=== PATIENT | female | born 1965 | race Caucasian/White ===

== ENCOUNTER 2017-12-04 11:04 | Inpatient (IN) | payer MEDICARE, MEDICAID ==
[~2017-12-04] VITALS: Ht 165.1 cm; Wt 97.9 kg
[~2017-12-04 11:04] MED LIST: ADV250 IH; ALBU8HFA IH; ATOR20TA86 PO; DDAV1 PO; GABA600T PO; INSLAN SQ; LAMO25 PO; METF850T2 PO; MONT10TA21 PO; NICO14T TD; NICO7T TD; QUET25TA PO; TEMA30 PO; TIOT185 IH; TOPI25CA PO
[2017-12-04] MEDS ORDERED: MELOXICAM 7.5 MG TABLET PO PRN (12:45)
[2017-12-04 13:29] VITALS: BP 120/67
[2017-12-04 14:00] VITALS: BP 107/63
[2017-12-04] MEDS: HydrOXYzine PAMOATE 25 MG CAPSULE PO SCH ×3 (14:54→20:09)
[2017-12-04] MEDS ORDERED: DEXTROSE 50%-WATER 25 GM/50 ML SYRINGE IVP PRN (15:15)
[2017-12-04] MEDS ORDERED: INSULIN ASPART 100 UNITS/ML SQ PRN (15:15)
[2017-12-04] MEDS: TOPIRAMATE 25 MG TABLET PO SCH (16:49)
[2017-12-04 17:00] VITALS: BP 118/74
[2017-12-04] MEDS ORDERED: LUBIPROSTONE 24 MCG CAPSULE PO SCH (17:00)
[2017-12-04] MEDS: MetFORMIN HCL 850 MG TABLET PO SCH (17:40)
[2017-12-04] MEDS: TraZODone HCL 150 MG TABLET PO SCH (20:09)
[2017-12-04] MEDS: ROPINIRole HCL 1 MG TABLET PO SCH (20:09)
[2017-12-04] MEDS: ESZOPICLONE 3 MG TABLET PO SCH (20:12)
[2017-12-04] MEDS ORDERED: INSULIN GLARGINE,HUM.REC.ANLOG 100 UNITS/ML SQ SCH (21:00)
[2017-12-04] MEDS: INSULIN GLARGINE,HUM.REC.ANLOG 100 UNITS/ML SQ SCH (21:00)
[2017-12-05 06:02] LABS: GLUCOMETER DEV NAME(LOC) 3EI B; GLUCOSE,POINT OF CARE 112 MG/DL (70-110)
[2017-12-05] MEDS: MetFORMIN HCL 850 MG TABLET PO SCH (07:08)
[2017-12-05] MEDS: LUBIPROSTONE 24 MCG CAPSULE PO SCH ×2 (07:09→16:51)
[2017-12-05 08:00] VITALS: BP 127/55
[2017-12-05] MEDS: LamoTRIgine 100 MG TABLET PO SCH (09:02)
[2017-12-05] MEDS: TOPIRAMATE 25 MG TABLET PO SCH ×2 (09:03→16:51)
[2017-12-05] MEDS: ROPINIRole HCL 1 MG TABLET PO SCH ×2 (09:03→19:47)
[2017-12-05] MEDS: HydrOXYzine PAMOATE 25 MG CAPSULE PO SCH ×4 (09:03→19:48)
[2017-12-05] MEDS: ZONISAMIDE 100 MG CAPSULE PO SCH (09:03)
[2017-12-05] MEDS: ATORVASTATIN CALCIUM 20 MG TABLET PO SCH (09:04)
[2017-12-05 09:14] LABS: BASOPHILS % (AUTO) 0.9 % (0.0-2.0); EOSINOPHILS % (AUTO) 2.2 % (1.0-6.0); HEMATOCRIT 38.8 % (36-46); HEMOGLOBIN 12.8 g/dL (12.0-16.0); LYMPHOCYTES # (AUTO) 2.1 K/uL (1.0-4.8); LYMPHOCYTES % (AUTO) 27.3 % (22.0-44.0); MEAN CORPUSCULAR HEMOGLOBIN 27.5 pg (26.0-34.0); MEAN CORPUSCULAR HGB CONC 32.9 G/dL (31.0-37.0); MEAN CORPUSCULAR VOLUME 84 fL (80-100); MONOCYTES # (AUTO) 0.5 K/uL (0.1-1.0); MONOCYTES % (AUTO) 6.1 % (2.0-9.0); NEUTROPHILS % (AUTO) 63.5 % (40.0-70.0); PLATELET COUNT (AUTO) 293 K/uL (150-450); RED BLOOD CELL COUNT(AUTO) 4.64 MIL/uL (4.00-5.20); RED CELL DISTRIBUTION WIDTH 13.9 % (11.5-14.5)
[2017-12-05 09:31] LABS: ALBUMIN 3.6 g/dL (3.4-5.0); BILIRUBIN,TOTAL 0.2 mg/dL (0.1-1.0); CALCIUM, TOTAL 8.9 mg/dL (8.8-10.5); CREATININE 1.34 mg/dL (0.60-1.30); POTASSIUM 4.5 mmol/L (3.5-5.1); THYROID STIMULATING HORMONE 3.96 uIU/mL (0.36-3.74)
[2017-12-05 09:36] LABS: HEMOGLOBIN A1C 6.1 % (4.5-6.2)
[2017-12-05 11:27] LABS: GLUCOMETER DEV NAME(LOC) 3EI B; GLUCOSE,POINT OF CARE 89 MG/DL (70-110)
[2017-12-05] MEDS: MetFORMIN HCL 500 MG TABLET PO SCH (16:53)
[2017-12-05 18:00] VITALS: BP 124/62
[2017-12-05] MEDS: TraZODone HCL 150 MG TABLET PO SCH (19:47)
[2017-12-05] MEDS: INSULIN GLARGINE,HUM.REC.ANLOG 100 UNITS/ML SQ SCH (19:53)
[2017-12-05] MEDS: ESZOPICLONE 3 MG TABLET PO SCH (20:52)
[2017-12-05] MEDS ORDERED: ESZOPICLONE 2 MG TABLET PO SCH (21:00)
[2017-12-06 04:30] VITALS: BP 124/60
[2017-12-06 05:38] LABS: GLUCOMETER DEV NAME(LOC) 3EI B; GLUCOSE,POINT OF CARE 107 MG/DL (70-110)
[2017-12-06] MEDS: LUBIPROSTONE 24 MCG CAPSULE PO SCH ×2 (07:03→07:09)
[2017-12-06] MEDS: MetFORMIN HCL 500 MG TABLET PO SCH (07:04)
[2017-12-06] MEDS: TOPIRAMATE 25 MG TABLET PO SCH (09:28)
[2017-12-06] MEDS: ATORVASTATIN CALCIUM 20 MG TABLET PO SCH (09:28)
[2017-12-06] MEDS: ZONISAMIDE 100 MG CAPSULE PO SCH (09:28)
[2017-12-06] MEDS: ROPINIRole HCL 1 MG TABLET PO SCH (09:28)
[2017-12-06] MEDS: HydrOXYzine PAMOATE 25 MG CAPSULE PO SCH ×2 (09:28→12:22)
[2017-12-06] MEDS: LamoTRIgine 100 MG TABLET PO SCH (09:28)
[2017-12-06] MEDS ORDERED: LUBI24CA2 PO (12:27)
[2017-12-06] MEDS ORDERED: HYDR-4031 PO (12:27)
[2017-12-06] MEDS ORDERED: ESZO3 PO (12:27)
[2017-12-06] MEDS ORDERED: ZONI100 PO (12:27)
[2017-12-06] MEDS ORDERED: ROPI1TAB11 PO (12:27)
[2017-12-06] MEDS ORDERED: TRAZ150 PO (12:27)
[2017-12-06 13:54] VITALS: BP 139/74
[2017-12-06 15:09] LABS: GLUCOMETER DEV NAME(LOC) 3EX 1; GLUCOSE,POINT OF CARE 106 MG/DL (70-110)
[2017-12-06 15:09] LABS: GLUCOMETER DEV NAME(LOC) 3EX 1; GLUCOSE,POINT OF CARE 92 MG/DL (70-110)
[2017-12-06 15:09] LABS: GLUCOMETER DEV NAME(LOC) 3EX 1; GLUCOSE,POINT OF CARE 97 MG/DL (70-110)
[2017-12-06 15:09] LABS: GLUCOMETER DEV NAME(LOC) 3EX 1; GLUCOSE,POINT OF CARE 111 MG/DL (70-110)
[2017-12-06 15:09] LABS: GLUCOMETER DEV NAME(LOC) 3EX 1; GLUCOSE,POINT OF CARE 115 MG/DL (70-110)
[2017-12-06] MEDS ORDERED: INSULIN GLARGINE,HUM.REC.ANLOG 100 UNITS/ML SQ SCH (21:00)
== END 2017-12-06 13:45 | disposition home or self-care (01) | DRG 885 ==
LOC: 3EX 13:27
PROVIDERS: ADMIT Psychiatry & Neurology Psychiatry; ATTEND Psychiatry & Neurology Psychiatry
DX: F31.9 Bipolar disorder, unspecified (principal); N18.9 Chronic kidney disease, unspecified; E11.22 Type 2 diabetes mellitus with diabetic chronic kidney disease; R45.851 Suicidal ideations; E78.5 Hyperlipidemia, unspecified; G25.81 Restless legs syndrome; G56.00 Carpal tunnel syndrome, unspecified upper limb; J44.9 Chronic obstructive pulmonary disease, unspecified; Z82.49 Family history of ischemic heart disease and other diseases of the circulatory system; Z90.710 Acquired absence of both cervix and uterus; Z90.721 Acquired absence of ovaries, unilateral; Z88.5 Allergy status to narcotic agent; Z88.0 Allergy status to penicillin; Z91.040 Latex allergy status; Z80.9 Family history of malignant neoplasm, unspecified
CPT/HCPCS: 82962; 83036; 84436; 84443; J1815

== ENCOUNTER 2019-05-11 10:21 | Emergency (ER) | payer MEDICARE, OTHER ==
[~2019-05-11] VITALS: Ht 162.6 cm; Wt 90.9 kg
[~2019-05-11 10:21] MED LIST changes: -ADV250 IH; -ALBU8HFA IH; -DDAV1 PO; +ESZO3 PO; -GABA600T PO; +HYDR-4031 PO; +LUBI24CA2 PO; +METF-961 PO; -METF850T2 PO; -MONT10TA21 PO; -NICO14T TD; -NICO7T TD; -QUET25TA PO; +ROPI1TAB11 PO; -TEMA30 PO; -TIOT185 IH; +TRAZ150 PO; +ZONI100 PO
[2019-05-11 10:39] LABS: GLUCOSE,POINT OF CARE 162 MG/DL (70-110)
[2019-05-11] MEDS ORDERED: ACETAMINOPHEN 500 MG TABLET PO ONE (11:15)
[2019-05-11 12:00] VITALS: BP 123/78
== END 2019-05-11 12:10 | disposition home or self-care (01) ==
LOC: EMS 10:21 → 4E 10:48 → UNDOADMIN 10:48 → EMS 12:10
DX: S63.616A Unspecified sprain of right little finger, initial encounter (principal); S80.211A Abrasion, right knee, initial encounter; J45.909 Unspecified asthma, uncomplicated; F31.9 Bipolar disorder, unspecified; E11.9 Type 2 diabetes mellitus without complications; E78.00 Pure hypercholesterolemia, unspecified; F17.210 Nicotine dependence, cigarettes, uncomplicated; Z90.710 Acquired absence of both cervix and uterus; Z98.51 Tubal ligation status; Z88.6 Allergy status to analgesic agent; Z88.0 Allergy status to penicillin; Z91.040 Latex allergy status; Z88.5 Allergy status to narcotic agent; Z79.899 Other long term (current) drug therapy; Z79.4 Long term (current) use of insulin; Z79.84 Long term (current) use of oral hypoglycemic drugs; W19.XXXA Unspecified fall, initial encounter; Y93.89 Activity, other specified; Y92.89 Other specified places as the place of occurrence of the external cause; Y99.8 Other external cause status
CPT/HCPCS: 99406

== ENCOUNTER 2021-03-13 10:25 | Emergency (ER) | payer MEDICARE, OTHER ==
[~2021-03-13] VITALS: Ht 165.1 cm; Wt 93.2 kg
[~2021-03-13 10:25] MED LIST changes: -LAMO25 PO; +LAMO25TA25 PO; -ROPI1TAB11 PO; +ROPI1TAB13 PO; -ZONI100 PO; +ZONI100C30 PO
[2021-03-13 10:46] LABS: GLUCOSE,POINT OF CARE 151 MG/DL (70-110)
[2021-03-13 11:17] LABS: BASOPHILS % (AUTO) 1.1 % (0.0-2.0); EOSINOPHILS % (AUTO) 1.1 % (1.0-6.0); HEMOGLOBIN 13.4 g/dL (12.0-16.0); LYMPHOCYTES # (AUTO) 2.3 K/uL (1.0-4.8); LYMPHOCYTES % (AUTO) 22.5 % (22.0-44.0); MEAN CORPUSCULAR HEMOGLOBIN 27.1 pg (26.0-34.0); MEAN CORPUSCULAR HGB CONC 32.6 G/dL (31.0-37.0); MEAN CORPUSCULAR VOLUME 83 fL (80-100); MONOCYTES # (AUTO) 0.7 K/uL (0.1-1.0); NEUTROPHILS # (AUTO) 7.1 K/uL (1.8-7.7); NEUTROPHILS % (AUTO) 68.3 % (40.0-70.0); PLATELET COUNT (AUTO) 293 K/uL (150-450); RED BLOOD CELL COUNT(AUTO) 4.92 MIL/uL (4.00-5.20); RED CELL DISTRIBUTION WIDTH 15.4 % (11.5-14.5)
[2021-03-13 11:27] LABS: CREATININE 1.06 mg/dL (0.60-1.30); POTASSIUM 3.7 mmol/L (3.5-5.1)
[2021-03-13 11:28] LABS: CALCIUM, TOTAL 9.1 mg/dL (8.8-10.5)
[2021-03-13 11:33] LABS: ALBUMIN 3.6 g/dL (3.4-5.0); BILIRUBIN,TOTAL 0.2 mg/dL (0.1-1.0); TOTAL PROTEIN, SERUM 6.2 g/dL (6.4-8.2)
[2021-03-13 12:15] VITALS: BP 129/77
[2021-03-13] MEDS ORDERED: KETOROLAC TROMETHAMINE 30 MG/ML VIAL IM ONE (12:15)
== END 2021-03-13 12:31 | disposition home or self-care (01) ==
LOC: EMS 10:34
DX: R07.89 Other chest pain (principal); R11.0 Nausea; J45.909 Unspecified asthma, uncomplicated; F31.9 Bipolar disorder, unspecified; E11.9 Type 2 diabetes mellitus without complications; E78.00 Pure hypercholesterolemia, unspecified; F17.210 Nicotine dependence, cigarettes, uncomplicated; Z88.0 Allergy status to penicillin; Z88.5 Allergy status to narcotic agent; Z91.040 Latex allergy status; Z79.4 Long term (current) use of insulin; Z90.710 Acquired absence of both cervix and uterus
CPT/HCPCS: 36415; 71101; 80053; 82962; 84484; 85025; 93005; 96372; 99285; J1885

== ENCOUNTER → 2021-10-30 | Outpatient (CLI) | payer MEDICARE, OTHER ==
[~2021-10-30] MED LIST changes: +METF-1185 PO; -METF-961 PO; -TRAZ150 PO; +TRAZ150T80 PO; -ZONI100C30 PO; +ZONI100C87 PO
[2021-10-30 15:31] LABS: ALBUMIN 3.9 g/dL (3.4-5.0); BILIRUBIN,TOTAL 0.2 mg/dL (0.1-1.0); CALCIUM, TOTAL 9.2 mg/dL (8.8-10.5); CHOL/HDL RATIO 2.4 (3.9-5.7); CREATININE 1.14 mg/dL (0.60-1.30); POTASSIUM 5.3 mmol/L (3.5-5.1); TOTAL PROTEIN, SERUM 7.1 g/dL (6.4-8.2)
== END | disposition home or self-care (01) ==
LOC: LABMN 11:19
PROVIDERS: ATTEND Psychiatry & Neurology Psychiatry
DX: F31.32 Bipolar disorder, current episode depressed, moderate (principal); E11.9 Type 2 diabetes mellitus without complications
CPT/HCPCS: 80053; 80061; 83036

== ENCOUNTER 2024-09-14 13:39 | Emergency (ER) | payer OTHER ==
[~2024-09-14] VITALS: Ht 160 cm; Wt 72.7 kg
[~2024-09-14 13:39] MED LIST changes: +ATOR20TA PO; -ATOR20TA86 PO; -ESZO3 PO; +ESZO3TAB53 PO; -HYDR-4031 PO; +HYDR-4808 PO; -LAMO25TA25 PO; +LAMO25TA36 PO; +ROPI1 PO; -ROPI1TAB13 PO
[2024-09-14] MEDS ORDERED: TOPI100T37 PO (13:48)
[2024-09-14] MEDS ORDERED: OLAN10TA74 PO (13:48)
[2024-09-14] MEDS ORDERED: ROPI1TAB46 PO (13:48)
[2024-09-14] MEDS ORDERED: DULO-114 PO (13:48)
[2024-09-14] MEDS ORDERED: LURA80TA4 PO (13:48)
[2024-09-14] MEDS ORDERED: GABA-534 PO (13:48)
[2024-09-14] MEDS ORDERED: OLAN15TA98 PO (13:48)
[2024-09-14] MEDS ORDERED: GABA-1404 PO (13:48)
[2024-09-14] MEDS ORDERED: HYDR50CA6 PO (13:48)
[2024-09-14] MEDS ORDERED: CLOP75TA32 PO (13:48)
[2024-09-14] MEDS ORDERED: TRAZ-257 PO (13:48)
[2024-09-14] MEDS ORDERED: LEVE10006 PO (13:48)
[2024-09-14] MEDS ORDERED: ROPI5TAB24 PO (13:48)
[2024-09-14] MEDS ORDERED: DULO-113 PO (13:48)
[2024-09-14] MEDS ORDERED: LAMO200T10 PO (13:48)
[2024-09-14] MEDS: ACETAMINOPHEN 500 MG TABLET PO ONE (16:04)
[2024-09-14 16:38] LABS: CALCIUM, TOTAL 8.6 mg/dL (8.8-10.5); CREATININE 1.16 mg/dL (0.60-1.30); POTASSIUM 3.6 mmol/L (3.5-5.1)
[2024-09-14 16:45] LABS: TROPONIN I-HIGH SENSITIVITY 4 ng/L (<51)
[2024-09-14 17:20] LABS: BASOPHILS % (AUTO) 1.3 % (0.0-2.0); EOSINOPHILS % (AUTO) 3.8 % (1.0-6.0); HEMATOCRIT 38.9 % (36-46); HEMOGLOBIN 12.8 g/dL (12.0-16.0); LYMPHOCYTES # (AUTO) 2.6 K/uL (1.0-4.8); LYMPHOCYTES % (AUTO) 33.1 % (22.0-44.0); MEAN CORPUSCULAR HEMOGLOBIN 28.9 pg (26.0-34.0); MEAN CORPUSCULAR HGB CONC 32.8 G/dL (31.0-37.0); MEAN CORPUSCULAR VOLUME 88 fL (80-100); MONOCYTES # (AUTO) 0.5 K/uL (0.1-1.0); MONOCYTES % (AUTO) 6.9 % (2.0-9.0); NEUTROPHILS # (AUTO) 4.3 K/uL (1.8-7.7); NEUTROPHILS % (AUTO) 54.9 % (40.0-70.0); PLATELET COUNT (AUTO) 294 K/uL (150-450); RED BLOOD CELL COUNT(AUTO) 4.42 MIL/uL (4.00-5.20); RED CELL DISTRIBUTION WIDTH 13.1 % (11.5-14.5); WHITE BLOOD COUNT (AUTO) 7.8 K/uL (4.5-11.0)
[2024-09-14 17:54] VITALS: BP 115/84; PULSE 72; RESP 18; TEMP 98.4; O2SAT 98
== END 2024-09-14 17:57 | disposition home or self-care (01) ==
LOC: EMS 13:39
DX: S00.03XA Contusion of scalp, initial encounter (principal); R51.9 Headache, unspecified; F25.9 Schizoaffective disorder, unspecified; E11.9 Type 2 diabetes mellitus without complications; E78.00 Pure hypercholesterolemia, unspecified; F12.90 Cannabis use, unspecified, uncomplicated; F17.210 Nicotine dependence, cigarettes, uncomplicated; Z88.0 Allergy status to penicillin; Z88.5 Allergy status to narcotic agent; Z91.040 Latex allergy status; Z79.02 Long term (current) use of antithrombotics/antiplatelets; Z79.899 Other long term (current) drug therapy; W05.1XXA Fall from non-moving nonmotorized scooter, initial encounter; Y93.89 Activity, other specified; Y92.89 Other specified places as the place of occurrence of the external cause; Y99.8 Other external cause status
CPT/HCPCS: 70450; 80048; 84484; 85025; 99284

== ENCOUNTER 2025-08-30 19:11 | Inpatient (IN) | payer OTHER, MEDICAID ==
[~2025-08-30] VITALS: Ht 165.1 cm; Wt 92.9 kg
[~2025-08-30 19:11] MED LIST changes: +CLOP75TA32 PO; +DULO60CA73 PO; -HYDR-4808 PO; +HYDR50CA6 PO; +LAMO200T10 PO; -LAMO25TA36 PO; +LEVE100023 PO; -LUBI24CA2 PO; +LURA80TA4 PO; +OLAN15TA98 PO; -ROPI1 PO; +ROPI5TAB24 PO; +TOPI-258 PO; -TOPI25CA PO
[2025-08-30] MEDS ORDERED: GABA-534 PO (19:44)
[2025-08-30] MEDS ORDERED: FLUT1BLS3 IH (19:44)
[2025-08-30] MEDS ORDERED: NICO-803 TP (19:44)
[2025-08-30] MEDS ORDERED: HYDR-4061 PO (19:44)
[2025-08-30] MEDS ORDERED: NALO4SPR22 NASAL (19:44)
[2025-08-30] MEDS ORDERED: LAMO25TA36 PO (19:44)
[2025-08-30 19:45] LABS: COVID AG,FIA SOURCE NASAL SWAB
[2025-08-30 19:49] LABS: CALCIUM, TOTAL 8.5 mg/dL (8.8-10.5); CREATININE 1.34 mg/dL (0.60-1.30); GLOMERULAR FILTR. RATE CALC 40.0 mL/min (>60); GLUCOSE,RANDOM 155.0 mg/dL (70-110); SODIUM SERUM 142.0 mmol/L (136-145); UREA NITROGEN, BLOOD 10.0 mg/dL (7-18)
[2025-08-30 19:51] LABS: PLATELET COUNT (AUTO) 304 K/uL (150-450); RED BLOOD CELL COUNT(AUTO) 4.70 MIL/uL (4.00-5.20); RED CELL DISTRIBUTION WIDTH 13.7 % (11.5-14.5); WHITE BLOOD COUNT (AUTO) 8.4 K/uL (4.5-11.0)
[2025-08-30] MEDS: POTASSIUM CHLORIDE 20 MEQ ER TABLET PO ONE (20:23)
[2025-08-30 20:40] LABS: SARS-COV2 (COVID) ANTIGEN,FIA Negative (Negative)
[2025-08-30] MEDS ORDERED: PROMETHAZINE HCL 25 MG TABLET PO PRN (22:00)
[2025-08-30] MEDS ORDERED: ACETAMINOPHEN 325 MG TABLET PO PRN (22:00)
[2025-08-30] MEDS ORDERED: GuaiFENesin/D-METHORPHAN [SUGAR-FREE] 200-20MG/10 ML SYRUP UDCUP PO PRN (22:00)
[2025-08-30] MEDS ORDERED: ZOLPIDEM TARTRATE 10 MG TABLET PO PRN (22:00)
[2025-08-30] MEDS ORDERED: OLANZapine 5 MG RAPDIS TABLET PO PRN (22:00)
[2025-08-30] MEDS ORDERED: MAG HYDROX/ALUMINUM HYD/SIMETH ES 30 ML SUSPENSION UDCUP PO PRN (22:00)
[2025-08-30] MEDS ORDERED: TUBERCULIN, PURIFIED PROTEIN DERIVATIVE 5 TU/0.1 ML SYRINGE ID ONE (22:00)
[2025-08-30] MEDS ORDERED: LOPERAMIDE HCL 2 MG CAPSULE PO PRN (22:00)
[2025-08-30] MEDS ORDERED: MAGNESIUM HYDROXIDE SUSPENSION 30 ML UDCUP PO PRN (22:00)
[2025-08-30] MEDS ORDERED: MELATONIN 5 MG TABLET PO PRN (22:00)
[2025-08-31 00:15] LABS: APPEARANCE,URINE CLEAR (CLEAR); GLUCOSE, URINE (UA) NEGATIVE (NEGATIVE); LEUKOCYTE ESTERASE ,URINE NEGATIVE (NEGATIVE); NITRATE,URINE NEGATIVE (NEGATIVE); OCCULT BLOOD,URINE NEGATIVE (NEGATIVE); PH,URINE DRUG SCREEN 6.0 (5.0-8.0); SPECIFIC GRAVITIY, URINE 1.018 (1.003-1.030)
[2025-08-31 00:21] LABS: AMPHET/METH SCREEN,URINE NEGATIVE (NEGATIVE); BARBITURATE SCREEN, URINE NEGATIVE (NEGATIVE); CANNABINOID SCREEN,URINE POSITIVE (NEGATIVE); COCAINE SCREEN,URINE NEGATIVE (NEGATIVE); METHADONE SCREEN, URINE NEGATIVE (NEGATIVE)
[2025-08-31 00:47] LABS: ALCOHOL, URINE DRUG SCREEN NEGATIVE (NEGATIVE)
[2025-08-31] MEDS: TraZODone HCL 150 MG TABLET PO ONE (00:49)
[2025-08-31] MEDS: ESZOPICLONE 3 MG TABLET PO ONE (00:50)
[2025-08-31 05:38] LABS: PLATELET COUNT (AUTO) 281 K/uL (150-450); RED BLOOD CELL COUNT(AUTO) 4.69 MIL/uL (4.00-5.20); RED CELL DISTRIBUTION WIDTH 13.7 % (11.5-14.5); WHITE BLOOD COUNT (AUTO) 7.3 K/uL (4.5-11.0)
[2025-08-31 05:53] LABS: ASPARTATE AMINOTRANSFERASE 10.0 U/L (15-37); CALCIUM, TOTAL 8.3 mg/dL (8.8-10.5); CHOL/HDL RATIO 3.0 (3.9-5.7); CREATININE 1.27 mg/dL (0.60-1.30); GLOMERULAR FILTR. RATE CALC 43.0 mL/min (>60); GLUCOSE,RANDOM 159.0 mg/dL (70-110); LDL CHOL (CALC.) 63.0 mg/dL (0-130); SODIUM SERUM 143.0 mmol/L (136-145); TOTAL PROTEIN, SERUM 5.9 g/dL (6.4-8.2); UREA NITROGEN, BLOOD 13.0 mg/dL (7-18)
[2025-08-31] MEDS: POTASSIUM CHLORIDE 20 MEQ ER TABLET PO ONE (05:59)
[2025-08-31] MEDS: THIAMINE 100 MG TABLET PO SCH (09:07)
[2025-08-31] MEDS: MULTIVITAMINS WITH MINERALS, THERAPEUTIC TABLET PO SCH (09:08)
[2025-08-31] MEDS: GABAPENTIN 400 MG CAPSULE PO SCH ×3 (09:09→20:32)
[2025-08-31] MEDS: FOLIC ACID 1 MG TABLET PO SCH (09:09)
[2025-08-31] MEDS: NALTREXONE HCL 50 MG TABLET PO SCH (09:10)
[2025-08-31] MEDS: TOPIRAMATE 100 MG TABLET PO SCH (09:12)
[2025-08-31] MEDS: DULoxetine HCL 60 MG CAPSULE PO SCH (09:12)
[2025-08-31] MEDS ORDERED: GABAPENTIN 300 MG CAPSULE PO PRN (11:15)
[2025-08-31 13:30] VITALS: BP 124/51; PULSE 65; RESP 18; TEMP 97.8; O2SAT 96
[2025-08-31] MEDS ORDERED: ACETAMINOPHEN 325 MG TABLET PO PRN (14:00)
[2025-08-31] MEDS ORDERED: LOPERAMIDE HCL 2 MG CAPSULE PO PRN (14:00)
[2025-08-31] MEDS ORDERED: MAGNESIUM HYDROXIDE SUSPENSION 30 ML UDCUP PO PRN (14:00)
[2025-08-31] MEDS ORDERED: PROMETHAZINE HCL 25 MG TABLET PO PRN (14:00)
[2025-08-31] MEDS ORDERED: GuaiFENesin/D-METHORPHAN [SUGAR-FREE] 200-20MG/10 ML SYRUP UDCUP PO PRN (14:00)
[2025-08-31] MEDS ORDERED: MAG HYDROX/ALUMINUM HYD/SIMETH ES 30 ML SUSPENSION UDCUP PO PRN (14:00)
[2025-08-31] MEDS ORDERED: TUBERCULIN, PURIFIED PROTEIN DERIVATIVE 5 TU/0.1 ML SYRINGE ID ONE (14:00)
[2025-08-31 14:13] VITALS: BP 121/52; PULSE 65; RESP 18; TEMP 97.8; O2SAT 96
[2025-08-31] MEDS: LURASIDONE HCL 80 MG TABLET PO SCH (16:45)
[2025-08-31] MEDS ORDERED: THIAMINE 100 MG TABLET PO SCH (17:00)
[2025-08-31] MEDS ORDERED: LURASIDONE HCL 40 MG TABLET PO SCH (17:30)
[2025-08-31] MEDS: OLANZapine 5 MG RAPDIS TABLET PO SCH (20:33)
[2025-08-31] MEDS ORDERED: TraZODone HCL 150 MG TABLET PO PRN ×2 (21:00)
[2025-08-31] MEDS ORDERED: OLANZapine 5 MG RAPDIS TABLET PO SCH (21:00)
[2025-08-31 21:02] VITALS: BP 126/59; PULSE 62; RESP 19; TEMP 98.1; O2SAT 97
[2025-09-01] MEDS ORDERED: INFLUENZA VIRUS VACCINE TVS (6MO+) 2025-26/PF 45 MCG/0.5 ML SYRINGE IM. ONE (05:45)
[2025-09-01 07:20] LABS: CHOL/HDL RATIO 3.1 (3.9-5.7); LDL CHOL (CALC.) 63.0 mg/dL (0-130)
[2025-09-01] MEDS: DULoxetine HCL 60 MG CAPSULE PO SCH (08:06)
[2025-09-01 08:48] VITALS: BP 104/51; PULSE 70; RESP 17; TEMP 97.7; O2SAT 95
[2025-09-01] MEDS ORDERED: MULTIVITAMINS WITH MINERALS, THERAPEUTIC TABLET PO SCH (09:00)
[2025-09-01] MEDS ORDERED: FOLIC ACID 1 MG TABLET PO SCH (09:00)
[2025-09-01 20:27] VITALS: BP 103/60; PULSE 62; RESP 18; TEMP 97.2; O2SAT 95
[2025-09-01] MEDS: ESZOPICLONE 3 MG TABLET PO PRN (22:41)
[2025-09-02 09:41] VITALS: BP 116/59; PULSE 70; RESP 18; TEMP 97.2; O2SAT 95
[2025-09-02] MEDS ORDERED: DEXTROSE 50%-WATER 25 GM/50 ML SYRINGE IVP PRN (13:30)
[2025-09-02] MEDS ORDERED: NICOTINE 14 MG/24 HOUR PATCH TD PRN (15:30)
[2025-09-02 16:55] LABS: GLUCOMETER DEV NAME(LOC) 3EX.2; GLUCOSE,POINT OF CARE 161 MG/DL (70-110)
[2025-09-02] MEDS: INSULIN LISPRO 100 UNITS/ML SQ PRN (17:39)
[2025-09-02 20:00] LABS: GLUCOMETER DEV NAME(LOC) 3EX.2; GLUCOSE,POINT OF CARE 121 MG/DL (70-110)
[2025-09-02 21:54] VITALS: BP 108/60; PULSE 69; RESP 18; TEMP 97.3; O2SAT 96
[2025-09-03 06:36] LABS: GLUCOMETER DEV NAME(LOC) 3EX.2; GLUCOSE,POINT OF CARE 117 MG/DL (70-110)
[2025-09-03 08:33] VITALS: BP 121/93; PULSE 71; RESP 16; TEMP 97.7; O2SAT 95
[2025-09-03] MEDS ORDERED: TOPI100 PO (11:40)
[2025-09-03] MEDS ORDERED: OLAN5TAB94 PO (11:40)
[2025-09-03] MEDS ORDERED: GABA-1201 PO ×2 (11:40)
[2025-09-03] MEDS ORDERED: LURA80TA2 PO (11:40)
[2025-09-03] MEDS ORDERED: DULO60CA73 PO (11:40)
[2025-09-03] MEDS ORDERED: LEVE-71 PO (11:40)
[2025-09-03] MEDS ORDERED: ROPI1TAB46 PO ×2 (11:40→15:07)
[2025-09-03] MEDS ORDERED: LAMO-24 PO (11:40)
[2025-09-03] MEDS ORDERED: TRAZ-283 PO (11:40)
[2025-09-03 11:41] LABS: GLUCOMETER DEV NAME(LOC) 3EX.2; GLUCOSE,POINT OF CARE 145 MG/DL (70-110)
[2025-09-03] MEDS ORDERED: FOLI0.4T6 PO (15:03)
[2025-09-03] MEDS ORDERED: HYDR50CA7 PO (15:03)
[2025-09-03] MEDS ORDERED: MULT-1303 PO (15:06)
[2025-09-03] MEDS ORDERED: THIA100T80 PO (15:07)
== END 2025-09-03 16:10 | disposition home or self-care (01) | DRG 885 ==
LOC: EMS 19:16 → 3EI 08-31 13:18
PROVIDERS: ADMIT Psychiatry & Neurology Psychiatry; ATTEND Psychiatry & Neurology Psychiatry
PROC: GZ56ZZZ Individual Psychotherapy, Supportive (ICD-10-PCS; principal; 2025-08-31)
PROC: GZHZZZZ Group Psychotherapy (ICD-10-PCS; 2025-08-31)
PROC: GZ58ZZZ Individual Psychotherapy, Cognitive-Behavioral (ICD-10-PCS; 2025-08-31)
DX: F25.0 Schizoaffective disorder, bipolar type (principal); J44.89 Other specified chronic obstructive pulmonary disease; R45.851 Suicidal ideations; F17.200 Nicotine dependence, unspecified, uncomplicated; Z20.822 Contact with and (suspected) exposure to COVID-19; E11.42 Type 2 diabetes mellitus with diabetic polyneuropathy; Z63.9 Problem related to primary support group, unspecified; Z59.9 Problem related to housing and economic circumstances, unspecified; Z65.3 Problems related to other legal circumstances; Z55.9 Problems related to education and literacy, unspecified; Z79.899 Other long term (current) drug therapy; Z88.0 Allergy status to penicillin; Z91.040 Latex allergy status
CPT/HCPCS: 80048; 80053; 80061; 80307; 81003; 82962; 83036; 84132; 84439; 84443; 85025; 86592; 99285; G0480

== ENCOUNTER 2025-10-13 15:34 | Emergency (ER) | payer OTHER, MEDICAID ==
[~2025-10-13] VITALS: Ht 165.1 cm; Wt 81.8 kg
[~2025-10-13 15:34] MED LIST changes: -ATOR20TA PO; -CLOP75TA32 PO; -ESZO3TAB53 PO; +FOLI0.4T6 PO; +GABA-1201 PO; -HYDR50CA6 PO; +HYDR50CA7 PO; -INSLAN SQ; +LAMO-24 PO; -LAMO200T10 PO; +LEVE-71 PO; -LEVE100023 PO; +LURA80TA2 PO; -LURA80TA4 PO; +MULT-1303 PO; -OLAN15TA98 PO; +OLAN5TAB94 PO; +ROPI1TAB46 PO; -ROPI5TAB24 PO; +THIA100T80 PO; -TOPI-258 PO; +TOPI100 PO; +TRAZ-283 PO; -TRAZ150T80 PO; -ZONI100C87 PO
[2025-10-13 19:05] VITALS: BP 115/67; PULSE 88; RESP 18; TEMP 98.2; O2SAT 100
== END 2025-10-13 20:00 | disposition home or self-care (01) ==
LOC: EMS 15:34
DX: M25.571 Pain in right ankle and joints of right foot (principal); M25.512 Pain in left shoulder; E78.00 Pure hypercholesterolemia, unspecified; E11.40 Type 2 diabetes mellitus with diabetic neuropathy, unspecified; F31.9 Bipolar disorder, unspecified; J44.89 Other specified chronic obstructive pulmonary disease; M79.7 Fibromyalgia; F17.210 Nicotine dependence, cigarettes, uncomplicated; F12.90 Cannabis use, unspecified, uncomplicated; Z98.890 Other specified postprocedural states; Z88.0 Allergy status to penicillin; Z90.710 Acquired absence of both cervix and uterus; Z90.721 Acquired absence of ovaries, unilateral; Z91.040 Latex allergy status; Z79.899 Other long term (current) drug therapy; W19.XXXA Unspecified fall, initial encounter
CPT/HCPCS: 99284; 73030-TC; 73610-TC; 73630-TC; Z7502